=== PATIENT | female | born 1965 | race Two or more races ===

== ENCOUNTER 2017-03-05 09:25 | Emergency (ER) | payer MEDICAID, OTHER ==
[~2017-03-05] VITALS: Ht 157.5 cm; Wt 84.8 kg
[2017-03-05 10:10] LABS: Basophils # (auto) 0 uL; Basophils % (auto) 0.6 % (0.0-2.0); CONDITION Y; Eosinophils # (auto) 0.1 uL; Eosinophils % (auto) 1.3 % (0.0-7.0); Hemoglobin 13.8 g/dL (12.2-16.2); Lymphocytes # (auto) 2.2 uL; Lymphocytes % (auto) 27.4 % (10.0-50.0); Mean Corpuscular Hemoglobin 30.4 pg (28.0-32.0); Mean Corpuscular Hgb Conc. 34.5 g/dL (32.0-36.0); Mean Corpuscular Volume 87.9 fL (80.0-100.0); Mean Platelet Volume 8.6 fL (7.4-10.4); Monocytes # (auto) 0.5 uL; Monocytes % (auto) 6.5 % (0.0-12.0); Neutrophils # (auto) 5.2 uL; Neutrophils % (auto) 64.2 % (37.0-80.0); Platelet Count (auto) 320 10^3/uL (140-450); Red Cell Distribution Width 13.8 % (11.6-16.0); White Blood Cell 8.1 10^3/uL (4.4-10.8)
[2017-03-05 11:14] LABS: Albumin 3.8 g/dL (3.4-5.0); Alkaline Phosphatase 117 U/L (45-117); Anion Gap 7 (5-15); Aspartate Aminotransferase 41 U/L (15-37); BUN/Creatinine Ratio 12.3; Bilirubin, Total 0.2 mg/dL (0.2-1.0); Blood Urea Nitrogen 9 mg/dL (7-18); Calcium 8.5 mg/dL (8.5-10.1); Carbon Dioxide 27 mmol/L (21-32); Chloride 105 mmol/L (98-107); GFR African American 108 mL/min; GFR Non-African American 89 mL/min; Glucose 107 mg/dL (74-106); Potassium 3.7 mmol/L (3.5-5.1); Sodium 139 mmol/L (136-145); Total Protein 7.2 g/dL (6.4-8.2)
[2017-03-05] MEDS ORDERED: SODIUM CHLORIDE 0.9% 1,000 ML IV ONE (12:06)
[2017-03-05] MEDS ORDERED: METOCLOPRAMIDE HCL 5MG/ml INJ 2ml VIAL IV ONE (12:15)
[2017-03-05] MEDS ORDERED: KETOROLAC TROMETH 30 MG/ML 1ML VIAL IV ONE (12:15)
[2017-03-05 13:09] LABS: Urine RBC None Seen /hpf (0 - 4)
[2017-03-05 13:48] LABS: Urine Bilirubin Negative (Negative); Urine Blood Negative /uL (Negative); Urine Color Yellow (Yellow); Urine Glucose Normal (Normal); Urine Ketone Negative (Negative); Urine Nitrite Negative (Negative); Urine Squamous Epithelial Cell FEW /hpf (<5); Urine Urobilinogen Normal (Negative)
[2017-03-05 15:13] VITALS: BP 123/78
== END 2017-03-05 16:56 | disposition home or self-care (01) ==
LOC: ER 09:25
DX: R07.89 Other chest pain (principal); M54.2 Cervicalgia; G89.29 Other chronic pain; F31.9 Bipolar disorder, unspecified; M79.7 Fibromyalgia; F41.9 Anxiety disorder, unspecified; R42 Dizziness and giddiness
CPT/HCPCS: 36415; 71020; 80053; 81001; 83735; 84443; 84484; 85025; 93005; 96361; 96374; 96375; 99285; J1885; J2765

== ENCOUNTER 2017-07-17 16:22 | Emergency (ER) | payer MEDICAID ==
[~2017-07-17] VITALS: Ht 157.5 cm; Wt 79.4 kg
[2017-07-17 16:36] VITALS: BP 136/90
[2017-07-17 18:12] LABS: Basophils # (auto) 0.2 uL; Basophils % (auto) 1.2 % (0.0-2.0); Eosinophils # (auto) 0.1 uL; Eosinophils % (auto) 0.5 % (0.0-7.0); Hematocrit 41.2 % (36.0-46.0); Lymphocytes # (auto) 2.8 uL; Lymphocytes % (auto) 22.5 % (10.0-50.0); Mean Corpuscular Hemoglobin 30.2 pg (28.0-32.0); Mean Platelet Volume 8.2 fL (6.9-10.8); Monocytes % (auto) 7.5 % (0.0-12.0); Neutrophils # (auto) 8.6 uL; Neutrophils % (auto) 68.3 % (37.0-80.0); Platelet Count (auto) 330 10^3/uL (140-450); Red Cell Distribution Width 13.7 % (11.8-14.3); White Blood Cell 12.6 10^3/uL (4.4-10.8)
[2017-07-17 18:28] LABS: Albumin 3.6 g/dL (3.4-5.0); Potassium 3.8 mmol/L (3.5-5.1)
[2017-07-17 18:31] LABS: BUN/Creatinine Ratio 16.9
[2017-07-17 18:33] LABS: Bilirubin, Total 0.1 mg/dL (0.2-1.0)
== END 2017-07-17 22:06 | disposition left against medical advice (07) ==
LOC: ER 16:31
DX: R10.9 Unspecified abdominal pain (principal); Z53.21 Procedure and treatment not carried out due to patient leaving prior to being seen by health care provider
CPT/HCPCS: 36415; 74176; 80053; 85025; 93005

== ENCOUNTER 2017-08-19 14:57 | Emergency (ER) | payer MEDICAID ==
[~2017-08-19] VITALS: Ht 157.5 cm; Wt 77.1 kg
[2017-08-19 18:45] VITALS: BP 146/90
== END 2017-08-19 19:41 | disposition home or self-care (01) ==
LOC: ER 15:15
DX: M79.604 Pain in right leg (principal)
CPT/HCPCS: 93971